=== PATIENT | male | born 1955 | race Caucasian/White ===

== ENCOUNTER 2025-02-26 20:44 | Emergency (ER) | payer MEDICARE, BC, SELFPAY ==
[2025-02-26 21:24] VITALS: BP 143/85; PULSE 85; RESP 16; TEMP 36.6; O2SAT 94; BMI 32.5
--- NOTE | 2025-02-26 21:29 | CRLHL7_ITS ---
For Patients: As a result of the Century Cures Act, medical imaging exams and procedure reports are released immediately into your electronic medical record. You may view this report before your referring provider. If you have questions, please contact your health care provider. INDICATION: Fall, foot pain, fall about week ago TECHNIQUE: Foot radiograph 3 views left COMPARISON: None FINDINGS: Bone: No acute fractures or aggressive bone lesions are identified. Pes planus is present. 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 No significant ankle effusion is seen. Soft tissue: Unremarkable. No radiopaque foreign bodies are seen. Severe vascular calcifications noted. IMPRESSION: 1. No acute osseous injuries or abnormalities are noted. Dictated by John Pepe MD @ 02/26/2025 10:04:01 PM Dictated by: John Pepe MD @ 02/26/2025 22:04:06 (Electronically Signed)
--- NOTE | 2025-02-26 21:29 | CRLHL7_ITS ---
For Patients: As a result of the Cures Act, medical imaging exams and procedure reports are released immediately into your electronic medical record. You may view this report before your referring provider. If you have questions, please contact your health care provider. INDICATION: Fall, shoulder pain, fall about week ago TECHNIQUE: Shoulder radiograph 3 views left COMPARISON: None FINDINGS: Bone: No acute fractures or aggressive bone lesions are identified. Joint: The glenohumeral joint is unremarkable. The acromioclavicular joint has mild osteoarthritis. Soft tissue: There is a 5 mm calcified granuloma present in the left midlung zone. No radiopaque foreign bodies are seen. A large gas containing gastric hernia is present. IMPRESSIONS: 1. No acute osseous injuries or abnormalities are noted. 2. A large gas containing gastric hernia is present. Dictated by John Pepe MD @ 02/26/2025 10:05:29 PM Dictated by: John Pepe MD @ 02/26/2025 22:05:40 (Electronically Signed)
--- NOTE | 2025-02-26 22:48 | ED_ITS ---
HPI - General Adult General Chief complaint: Extremity Pain/Injury, Lower Stated complaint: L shoulder pain, swelling Time Seen by Provider: 02/26/25 22:18 Source: patient Mode of arrival: ambulatory Limitations: no limitations History of Present Illness HPI narrative: 69-year-old male presenting today with left shoulder and left foot pain after a fall he sustained approximately 2 weeks ago. Patient states that he tripped while on the sidewalk and landed on his left shoulder. He has been having left shoulder pain ever since. Today it really bothered him so he came in for evaluation. He denies new injury. He states that it hurts to move it over his head or behind his back. He has a hard time getting dressed and taking his shirt off. He states that he has a history of neuropathy in that his feet hurt all the time with his left foot has been hurting more than the right for several days now. States that he has chronic edema and he elevates his feet frequently throughout the day to help with that. Past medical history significant for peripheral neuropathy, atrial fibrillation not anticoagulated, BPH. Patient takes gabapentin, diltiazem, Flomax, finasteride. Related Data Allergies Allergy/AdvReac Type Severity Reaction Status Date / Time No Known Drug Allergies Allergy Verified 02/26/25 21:29 Review of Systems Status of ROS: Reports: 10 or more systems reviewed and unremarkable except as noted in History and below Exam Narrative: Exam Narrative: Well-nourished well-developed patient in no acute distress. Alert and oriented. Answers questions appropriately. Mood and affect are appropriate. Thoughts are goal oriented and rational. No tangential or magical thinking noted. Patient speaks in full sentences without needing to catch his breath. HEENT: Normocephalic atraumatic. Pupils are equally round reactive to light. Extraocular muscles are intact. Conjunctivae are moist without any icterus noted. Moist mucous membranes. Abdomen: Protuberant. Extremities: Bilateral lower extremities show 1 to 2+ pitting edema, left slightly worse than the right. He has no joint tenderness at the base of the toes or the ankle. He has no erythema or evidence of infection. He has normal DP and PT pulses bilaterally. Left shoulder has normal appearance. He has mild discomfort anteriorly with pressure. He has no acute bony tenderness. He has full range of motion with passive motion however he has discomfort when he has his arm over his head and has to bring it down. He also cannot bring his arm behind his back secondary to pain. Skin: Well perfused. Some petechia of the lower extremities. Const: Vital Signs, click to edit/add: Vital Signs - 24 hr 02/26/25 21:24 Temperature 98 F Pulse Rate [Pulse Oximeter] 85 Respiratory Rate 16 Blood Pressure [Ri ght Upper Arm] 143/85 H Pulse Oximetry 94 Oxygen Delivery Me thod Room Air Course Course ED Course: X-rays of the foot and shoulder were both obtained, no acute injuries noted. Gastric hernia present. Patient received an oral dose of hydrocodone-APAP. Vital Signs Vital signs: Initial Vital Signs Temperature 98 F 02/26/25 21:24 Temperature Source Temporal Artery Scan 02/26/25 21:24 Pulse Rate 85 02/26/25 21:24 Respiratory Rate 16 02/26/25 21:24 Blood Pressure 143/85 H 02/26/25 21:24 Blood Pressure Mean 104 02/26/25 21:24 Blood Pressure Position Sitting 02/26/25 21:24 Pulse Oximetry 94 02/26/25 21:24 Oxygen Delivery Method Room Air 02/26/25 21:24 Vital Signs Temperature 98 F 02/26/25 21:24 Pulse Rate 85 02/26/25 21:24 Respiratory Rate 16 02/26/25 21:24 Blood Pressure 143/85 H 02/26/25 21:24 Pulse Oximetry 94 02/26/25 21:24 Oxygen Delivery Method Room Air 02/26/25 21:24 Temperature 98 F 02/26/25 21:24 Pulse Rate 85 02/26/25 21:24 Respiratory Rate 16 02/26/25 21:24 Blood Pressure 143/85 H 02/26/25 21:24 Pulse Oximetry 94 02/26/25 21:24 Oxygen Delivery Method Room Air 02/26/25 21:24 Medical Decision Making MDM Narrative Medical decision making narrative: [age] year male with bilateral foot pain, left greater than the right. This appears to be a chronic issue that has been recently exacerbated. Recommend follow-up with primary care. Shoulder pain, concerned about a rotator cuff injury. Recommend follow-up with orthopedics. Patient will be sent home with hydrocodone APAP to take. Side effects were discussed, including increased risk of fall, constipation, dizziness, and sedation. Imaging Data Shoulder x-ray: Attestation: I have reviewed the pertinent imaging results. Radiologist's impression: TECHNIQUE: Shoulder radiograph 3 views left COMPARISON: None FINDINGS: Bone: No acute fractures or aggressive bone lesions are identified. Joint: The glenohumeral joint is unremarkable. The acromioclavicular joint has mild osteoarthritis. Soft tissue: There is a 5 mm calcified granuloma present in the left midlung zone. No radiopaque foreign bodies are seen. A large gas containing gastric hernia is present. IMPRESSIONS: 1. No acute osseous injuries or abnormalities are noted. 2. A large gas containing gastric hernia is present. Foot x-ray: Attestation: I have reviewed the pertinent imaging results. Radiologist's impression: TECHNIQUE: Foot radiograph 3 views left COMPARISON: None FINDINGS: Bone: No acute fractures or aggressive bone lesions are identified. Pes planus is present. 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 No significant ankle effusion is seen. Soft tissue: Unremarkable. No radiopaque foreign bodies are seen. Severe vascular calcifications noted. IMPRESSION: 1. No acute osseous injuries or abnormalities are noted. Discharge Plan Discharge Clinical Impression: Left shoulder pain, Foot pain Patient Disposition: Home, Self-Care Condition: Stable Additional Instructions: Recommend you follow-up with primary care to discuss the discomfort in your feet. Make sure your elevating feet as much as possible throughout the day. Wear compression stockings for. The number for our primary care clinic will be provided to you. As far as your shoulder, there is concerned about a possible rotator cuff injury. Recommend you follow-up with Orthopedics this coming week. Call them on Friday morning to set up an appointment. The number to the orthopedic clinic will be provided to you. In the meantime you can wear a sling for comfort. Can also take [place] as needed. This is a narcotic pain medication that can cause increased risk of fa ll, dizziness or constipation. Do not operate heavy machinery when taking this medication. Eight tablets of [place] sent to [facility]. Stand Alone Forms: [facility] Info Instructions
[2025-02-26] MEDS: HYDROCODONE-ACETAMIN 5-325 MG 1 TAB PO (22:57)
== END 2025-02-26 23:28 | disposition home or self-care (01) ==
LOC: ED 23:11
PROVIDERS: Emergency Provider Family Medicine
DX: M25.512 Pain in left shoulder (principal); M79.672 Pain in left foot; W01.0XXA Fall on same level from slipping, tripping and stumbling without subsequent striking against object, initial encounter
CPT/HCPCS: 73030; 73630; 99283; 99284; A9270

== ENCOUNTER 2025-03-17 12:19 | Outpatient (CLI) | payer MEDICARE, BC, SELFPAY | END 2025-03-17 12:20 | disposition home or self-care (01) | PROVIDERS: PCP Family Medicine; Visit Provider Family Medicine | DX: I10 Essential (primary) hypertension (principal); R53.83 Other fatigue; R35.0 Frequency of micturition; Z12.5 Encounter for screening for malignant neoplasm of prostate | CPT/HCPCS: 80048; 80061; 85025; G0103 ==

== ENCOUNTER 2025-04-14 12:00 | Outpatient (CLI) | payer MEDICARE, BC, SELFPAY ==
--- NOTE | 2025-04-26 12:24 | W.PM.SLEEP ---
Sleep Study Details Details Interpreting Provider: Brian Date of Sleep Study: 04/14/25 Sleep Study Details: STUDY TYPE:? Home unattended ? BMI:? 32 ORDERING PROVIDER:Louann Velarde INDICATION:? Concerned about sleep apnea ? SLEEP SUMMARY:? 592 minutes RESPIRATORY SUMMARY:? AHI 13.4 per CMS guideline, 19.9 per rule 1A Low oxygen 77 1.2% of study oxygen less than 90% Snoring 96.3% PERIODIC LIMB MOVEMENTS OF SLEEP:? Not recorded CARDIAC:? Range 48-94, mean 71.4 beats per minute IMPRESSION:? Mild obstructive sleep apnea per CMS guidelines RECOMMENDATION: Treatment options include CPAP, dental appliance and/or airway expansion surgery.
== END 2025-04-14 12:01 | disposition home or self-care (01) ==
LOC: SLEEP 12:00
PROVIDERS: PCP Family Medicine; Visit Provider Otolaryngology
DX: G47.33 Obstructive sleep apnea (adult) (pediatric) (principal)
CPT/HCPCS: 95806